=== PATIENT | female | born 1950 | race Caucasian/White ===

== ENCOUNTER → 2023-07-17 06:25 | Day surgery (SDC) | payer OTHER, SELFPAY | LOC: GI 06:25 | PROVIDERS: ATTENDING PHYSICIAN Internal Medicine Gastroenterology | DX: Z12.11 Encounter for screening for malignant neoplasm of colon (principal); K57.30 Diverticulosis of large intestine without perforation or abscess without bleeding; K64.8 Other hemorrhoids; K63.5 Polyp of colon; Z86.010 Personal history of colon polyps | CPT/HCPCS: 45385; 45381; 88305 ==

== ENCOUNTER 2023-12-12 21:03 | Emergency (ER) | payer OTHER, SELFPAY ==
[2023-12-12 21:07] VITALS: BP 174/79
[2023-12-12 21:09] VITALS: BP 174/97
--- NOTE | 2023-12-12 23:33 | ED.GENMED ---
History of Present Illness
General
Chief Complaint: Fall
Time Seen by Provider: 12/12/23 23:33
History of Present Illness
History of Present Illness:
TIME OF INITIAL ENCOUNTER: 11:35 PM
HPI: Earlier this morning, the patient struck her head on drywall. She missed the last step she was going down the steps. She was concerned because she has some 'lumps' on the back of her head. She also describes some pain in the neck/bilateral
trapezius.
EXAM:
GENERAL: Well appearing in no distress
CERVICAL SPINE: No midline c-spine tenderness with excellent AROM, some vague tenderness with palpation to the trapezius bilaterally
HEAD: No evidence of craniofacial trauma
CHEST: No chest wall tenderness, normal heart sounds
LUNGS: Equal lung sounds, no respiratory distress
ABDOMEN: No abdominal tenderness, no peritoneal signs
EXTREMITIES: Normal active range of motion, no tenderness
NEURO: Excellent strength all extremities, appropriate mental status, normal speech/language
NUMBER AND COMPLEXITY OF PROBLEMS ADDRESSED AT THE ENCOUNTER
� Chronic conditions affecting care: High blood pressure, hyperlipidemia
� Acute Exacerbation and/or Progression of Chronic Illness: This is an acute problem
� Differential Diagnosis includes: Minor head injury, concussion, intracranial hemorrhage
AMOUNT AND/OR COMPLEXITY OF DATA TO BE REVIEWED AND ANALYZED
� I performed an independent evaluation of and my interpretation is:
EKG:
CT: CT brain shows no acute abnormality
X-rays:
Laboratory Studies:
Other:
� Review of other/old records: Patient had colonoscopy in 2023
� Clinical information was obtained by an independent historian: Spoke to daughter at bedside
� Prescriptions/Medications Considered but not given:
� Further testing considered but not performed:
RISK OF COMPLICATIONS AND/OR MORBIDITY OR MORTALITY OF PATIENT MANAGEMENT
� Social determinants of health affecting care: Lives at home
� Discussion with other providers:
� Escalation of care including admission/observation vs risk of discharge considered: Given patient's age, CT imaging obtained. No evidence for concussion based on physical exam and history.
ANY OTHER UPDATES:
Past History
Past History
ED Past Medical History: None
ED Past Surgical History: Gynecological
Social History
Tobacco: Non-smoker
Personal:
Living: with family
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
Phy Exam
Physical Exam
Physical Exam:
See HPI
Course
Orders/Labs/Results
Orders:
Orders
12/12/23 21:[address] [CT Head W/o Iv Contrast] Urgent
Comment:
Reason For Exam: pain s/p fall
Vital Signs
Initial and Last Documented VS:
Initial Vital Signs
Temp Pulse Resp BP Pulse Ox
98.9 F 76 18 174/79 98
12/12/23 21:07 12/12/23 21:07 12/12/23 21:07 12/12/23 21:07 12/12/23 21:07
Last Documented Vital Signs
Temp Pulse Resp BP Pulse Ox
97.9 F 80 18 174/97 98
12/12/23 21:09 12/12/23 21:09 12/12/23 21:09 12/12/23 21:09 12/12/23 21:09
*Critical Care Note
Total Time (30-74mins, 75-104mins- exclusive of procedures): Not Applicable
ED Attending Note
-
Portions of this chart may have been created with voice recognition software.� Occasional wrong word or��sound alike� substitutions may have occurred due to the inherent limitations of voice recognition software.
Discharge Plan
Departure
Patient Disposition: Home (Routine Discharge)
Date of Disposition: 12/13/23
Time of Disposition: 00:04
Patient with high blood pressure during this ER visit?: Yes
Discharge Problem:
Head injury
Instructions: Head Injury in Adults (DC), BLOOD PRESSURE
Referrals:
Bonnie Barajas PA-C [Family Provider] -
Activity Restrictions/Additional Instructions:
CAT scan of the brain shows no bleeding. Return here if worse or any other concerns.
Interventions
Interventions:
*Risk Screen - Suicide Last Done: 12/12/23 21:07
*General Assessment Last Done: 12/12/23 21:07
*Neglect/Abuse Screening Last Done: 12/12/23 21:07
*ED COVID-19 Vaccine History Last Done: 12/12/23 21:07
Discharge Date and Time
Print Language: ARABIC
[2023-12-13 00:41] VITALS: BP 163/79
== END 2023-12-13 00:44 | disposition home or self-care (01) ==
LOC: EMR 21:03
PROVIDERS: EMERGENCY PHYSICIAN Emergency Medicine; FAMILY PHYSICIAN Physician Assistant Medical
DX: S09.90XA Unspecified injury of head, initial encounter (principal); W19.XXXA Unspecified fall, initial encounter
CPT/HCPCS: 99284; 70450

== ENCOUNTER → 2024-07-14 12:49 | Outpatient (REF) | payer OTHER, SELFPAY | LOC: RCS 12:49 | PROVIDERS: ATTENDING PHYSICIAN Physician Assistant; FAMILY PHYSICIAN Physician Assistant Medical | DX: I34.0 Nonrheumatic mitral (valve) insufficiency (principal) | CPT/HCPCS: 93306 ==

== ENCOUNTER → 2024-08-30 12:36 | Outpatient (REF) | payer OTHER, SELFPAY | LOC: RAD 12:36 | PROVIDERS: ATTENDING PHYSICIAN Family Medicine; FAMILY PHYSICIAN Physician Assistant Medical | DX: M79.641 Pain in right hand (principal) | CPT/HCPCS: 73130 ==

== ENCOUNTER → 2024-11-25 09:36 | Outpatient (REF) | payer OTHER, SELFPAY ==
[2024-11-25 10:37] LABS: Urine Character Clear (Clear)
== END ==
LOC: REG 09:36
PROVIDERS: ATTENDING PHYSICIAN Family Medicine
DX: N39.0 Urinary tract infection, site not specified (principal)
CPT/HCPCS: 81003